=== PATIENT | male | born 1990 | race Caucasian/White ===

== ENCOUNTER 2020-11-22 21:22 | Emergency (ER) | payer BC, MEDICAID ==
[2020-11-22] MEDS ORDERED: Sodium Chloride 0.9% 2.5 ML Syringe FLUSH PRN (22:07)
[2020-11-22] MEDS ORDERED: Sodium Chloride 0.9% 10 ML Syringe FLUSH PRN (22:07)
[2020-11-22] MEDS ORDERED: LORazepam 1 MG Tab PO ONE (22:15)
--- NOTE | 2020-11-22 22:19 | EDM.PDOC ---
ED HPI GENERAL MEDICAL PROBLEM - General Chief Complaint: General Stated Complaint: DIARRHEA, ABDOMINAL PAIN, HEART PALPITATIONS Time Seen by Provider: 11/22/20 21:54 - History of Present Illness INITIAL COMMENTS - FREE TEXT/NARRATIVE: Patient is an otherwise well 29-year-old male with no previous past medical history who is presenting with palpitations blood in stool shortness of breath. Patient states that he initially had an episode of palpitations shortness of breath and anxiety a month or 2 ago after a night of heavy drinking and drinking a large cup of coffee. He states that he is relatively caffeine sensitive and normally just drinks green tea each day. He had an episode of palpitations lightheadedness near syncope and shortness of breath. These resolved without intervention. Patient had a similar episode a little over 2 weeks ago again in the setting of caffeine use. Patient was at the gym 3 days ago he was doing a chest workout and developed anterior chest pain as well as a sensation of shortness of breath and dizziness. He states that since that time his shortness of breath seems to have persisted. He also reports significant anxiety. No syncope or near syncope no active palpitations no active chest pain. Patient is a non-smoker. Patient also is concerned about some faint red lines on his nose and a sensation that he might be flushed or that he might have increased redness of his skin. He reports that on and off for the last month or so he has had small-volume bright red blood per rectum. Sometimes coating the stool sometimes mixed in with the stool. He denies any pain with defecation. He denies any abdominal pain. Patient has a history of allergies and reports significant nasal congestion as well. - Related Data Allergies Allergy/AdvReac Type Severity Reaction Status Date / Time No Known Allergies Allergy Verified 11/22/20 21:54 Home Meds: Home Meds . [No Known Home Meds] 11/22/20 [History] Past Medical History HEENT History: Reports: None Cardiovascular History: Reports: None Respiratory History: Reports: Asthma Gastrointestinal History: Reports: None Genitourinary History: Reports: None Musculoskeletal History: Reports: None Neurological History: Reports: None Psychiatric History: Reports: Anxiety Endocrine/Metabolic History: Reports: None Insulin Pump Model and Insulation Mechanic: None Hematologic History: Reports: None Immunologic History: Reports: None Oncologic (Cancer) History: Reports: None Dermatologic History: Reports: None - Infectious Disease History Infectious Disease History: Reports: None - Past Surgical History Head Surgeries/Procedures: Reports: None Social & Family History - Tobacco Use Tobacco Use Status *Q: Former Tobacco User Used Tobacco, but Quit: Yes Month/Year Tobacco Last Used: few years - Caffeine Use Caffeine Use: Reports: None - Recreational Drug Use Recreational Drug Use: No ED ROS GENERAL - Review of Systems Review Of Systems: See Below Free Text/Narrative/Comment: General: No fever. Skin: Per HPI Eyes: No vision problems. ENT: No sore throat. Neck: No neck stiffness. Respiratory: Per HPI Cardiac: Per HPI Gastrointestinal: Per HPI Musculoskeletal: No myalgias/arthralgias. Neurologic: No headache. ED EXAM, GENERAL - Physical Exam Exam: See Below Free Text/Narrative:: General Appearance: No acute distress, appears comfortable Skin: No rash HEENT: Normocephalic/atraumatic, sclera anicteric, mucous membranes moist Neck: Normal range of motion Chest and Lungs: Bilateral breath sounds, clear to auscultation Cardiovascular: Regular rate and rhythm, no murmur Abdomen: Soft, non-tender Back: Normal Musculoskeletal: No edema or tenderness Neurologic: Awake, alert, no obvious deficits, moving all extremities Psychiatric: Appropriate, cooperative #1 Interpretation EKG Date: 11/22/20 Time: 23:15 EKG Interpretation Comments: Normal sinus rhythm with a rate of 72 normal intervals and axis no acute ischemia normal EKG Course - Vital Signs Last Recorded V/S: Last Vital Signs Temp 98.0 F 11/22/20 23:19 Pulse 82 11/22/20 23:19 Resp 20 11/22/20 23:19 BP 138/72 11/22/20 23:19 Pulse Ox 99 11/22/20 23:19 - Orders/Labs/Meds Orders: Active Orders 24 hr Category Date Time Status EKG 12 Lead [EKG Documentation Completion] [RC] STAT Care 11/22/20 23:02 Active Sodium Chloride 0.9% [Saline Flush] Med 11/22/20 22:07 Active 10 ml FLUSH ASDIRECTED PRN Sodium Chloride 0.9% [Saline Flush] Med 11/22/20 22:07 Active 2.5 ml FLUSH ASDIRECTED PRN Saline Lock Insert [OM.PC] Stat Oth 11/22/20 22:07 Ordered Medication Orders Sodium Chloride (Sodium Chloride 0.9% 10 Ml Syringe) 10 ml FLUSH ASDIRECTED PRN PRN Reason: Keep Vein Open Last Admin: 11/22/20 22:29 Dose: 10 ml Documented by: SABIHA Sodium Chloride (Sodium Chloride 0.9% 2.5 Ml Syringe) 2.5 ml FLUSH ASDIRECTED PRN PRN Reason: Keep Vein Open Last Admin: 11/22/20 22:29 Dose: 2.5 ml Documented by: SABIHA Labs: Laboratory Tests 11/22/20 11/22/20 Range/Units 22:16 22:16 WBC 9.35 (4.0-11.0) K/uL RBC 5.48 (4.50-5.90) M/uL Hgb 16.6 (13.0-17.0) g/dL Hct 48.7 (38.0-50.0) % MCV 88.9 (80.0-98.0) fL MCH 30.3 (27.0-32.0) pg MCHC 34.1 (31.0-37.0) g/dL RDW Std Deviation 44.3 (28.0-62.0) fl RDW Coeff of Kaycee 14 (11.0-15.0) % Plt Count 323 (150-400) K/uL MPV 9.90 (7.40-12.00) fL Neut % (Auto) 65.5 (48.0-80.0) % Lymph % (Auto) 26.2 (16.0-40.0) % [place] % (Auto) 7.4 (0.0-15.0) % Eos % (Auto) 0.5 (0.0-7.0) % Baso % (Auto) 0.4 (0.0-1.5) % Neut # (Auto) 6.1 H (1.4-5.7) K/uL Lymph # (Auto) 2.5 H (0.6-2.4) K/uL [place] # (Auto) 0.7 (0.0-0.8) K/uL Eos # (Auto) 0.1 (0.0-0.7) K/uL Baso # (Auto) 0.0 (0.0-0.1) K/uL Nucleated RBC % 0.0 /100WBC Nucleated RBCs # 0 K/uL Sodium 137 (136-148) mmol/L Potassium 4.2 (3.5-5.1) mmol/L Chloride 101 (98-107) mmol/L Carbon Dioxide 25.4 (21.0-32.0) mmol/L BUN 12 (7.0-18.0) mg/dL Creatinine 0.9 (0.8-1.3) mg/dL Est Cr Clr Drug Dosing 126.17 mL/min Estimated GFR (MDRD) > 60.0 ml/min Glucose 98 (74-106) mg/dL Calcium 9.3 (8.5-10.1) mg/dL Magnesium 2.0 (1.8-2.4) mg/dL Total Bilirubin 0.6 (0.2-1.0) mg/dL AST 10 L (15-37) IU/L ALT 24 (14-63) IU/L Alkaline Phosphatase 88 (46-116) U/L Troponin I < 0.050 (0.000-0.056) ng/mL Total Protein 7.8 (6.4-8.2) g/dL Albumin 4.2 (3.4-5.0) g/dL Globulin 3.6 (2.6-4.0) g/dL Albumin/Globulin Ratio 1.2 (0.9-1.6) TSH 3rd Generation 2.16 (0.36-3.74) uIU/mL Meds: Medications Generic Name Dose Route Start Last Admin Trade Name Freq PRN Reason Stop Dose Admin Sodium Chloride 10 ml 11/22/20 22:07 11/22/20 22:29 Sodium Chloride 0.9% 10 Ml Syringe FLUSH 10 ml ASDIRECTED PRN Administration Keep Vein Open Sodium Chloride 2.5 ml 11/22/20 22:07 11/22/20 22:29 Sodium Chloride 0.9% 2.5 Ml Syringe FLUSH 2.5 ml ASDIRECTED PRN Administration Keep Vein Open Discontinued Medications Generic Name Dose Route Start Last Admin Trade Name Freq PRN Reason Stop Dose Admin Lorazepam 1 mg 11/22/20 22:15 11/22/20 22:29 Lorazepam 1 Mg Tab PO 11/22/20 22:16 1 mg ONETIME ONE Administration Lorazepam Confirm 11/22/20 22:32 11/22/20 22:33 Lorazepam 1 Mg Tab Administered 11/22/20 22:33 Not Given Dose 1 mg .ROUTE .STK-MED ONE Departure - Departure Time of Disposition: 23:57 Disposition: Home, Self-Care 01 Condition: Good Clinical Impression: Palpitations, Anxiety - Discharge Information *PRESCRIPTION DRUG MONITORING PROGRAM REVIEWED*: Not Applicable *COPY OF PRESCRIPTION DRUG MONITORING REPORT IN PATIENT JONATHAN: Not Applicable Instructions: Palpitations, Managing Anxiety, Adult Forms: ED Department Discharge Additional Instructions: Your EKG today was normal and showed normal heart conduction. Your blood work showed normal blood counts with a good hemoglobin normal kidney function normal thyroid function and normal electrolytes. Your chest x-ray was normal and showed no pneumonia or other problems in your lungs. Because your symptoms improved with the Ativan and they do seem to be somewhat situational I think anxiety is playing a strong exacerbating role in your symptoms. With the nasal congestion allergies may be playing a role as well. I encourage you to follow- up with one of the primary care clinics listed below. The blood in your stool is most likely related to hemorrhoids. However, if the blood in your stool worsens you develop any other symptoms that concern you please call your doctor or return to the ER. [facility] - Primary Care [address] [place] [address] [place] [address] The following information is given to patients seen in the emergency department who are being discharged to home. This information is to outline your options for follow-up care. We provide all patients seen in our emergency department with a follow-up referral. The need for follow-up, as well as the timing and circumstances, are variable depending upon the specifics of your emergency department visit. If you don't have a primary care physician on staff, we will provide you with a referral. We always advise you to contact your personal physician following an emergency department visit to inform them of the circumstance of the visit and for follow-up with them and/or the need for any referrals to a consulting specialist. The emergency department will also refer you to a specialist when appropriate. This referral assures that you have the opportunity for follow-up care with a specialist. All of these measure are taken in an effort to provide you with optimal care, which includes your follow-up. Under all circumstances we always encourage you to contact your private physician who remains a resource for coordinating your care. When calling for follow-up care, please make the office aware that this follow-up is from your recent emergency room visit. If for any reason you are refused follow-up, please contact the [facility] Emergency Department at and asked to speak to the emergency department charge nurse. Sepsis Event Note (ED) - Evaluation Sepsis Screening Result: No Definite Risk - Focused Exam Vital Signs: Vital Signs Temp Pulse Resp BP Pulse Ox 11/22/20 23:19 98.0 F 82 20 138/72 99 11/22/20 21:45 97.3 F 85 18 123/84 97 - My Orders Last 24 Hours: My Active Orders 11/22/20 22:07 Sodium Chloride 0.9% [Saline Flush] 10 ml FLUSH ASDIRECTED PRN Sodium Chloride 0.9% [Saline Flush] 2.5 ml FLUSH ASDIRECTED PRN Saline Lock Insert [OM.PC] Stat 11/22/20 23:02 EKG 12 Lead [EKG Documentation Completion] [RC] STAT - Assessment/Plan Last 24 Hours: My Active Orders 11/22/20 22:07 Sodium Chloride 0.9% [Saline Flush] 10 ml FLUSH ASDIRECTED PRN Sodium Chloride 0.9% [Saline Flush] 2.5 ml FLUSH ASDIRECTED PRN Saline Lock Insert [OM.PC] Stat 11/22/20 23:02 EKG 12 Lead [EKG Documentation Completion] [RC] STAT Assessment:: Patient is an otherwise well well-appearing 29-year-old male presenting with symptoms as noted above. Then a combination of allergies and anxiety and caffeine side effects would explain the majority of his symptoms. The bright red blood likely represents hemorrhoids diverticular bleeding considered I think it is unlikely given duration of symptoms without any tachycardia or other findings of significant blood loss. That said labs are pending. Patient is PERC negative. ACS felt very unlikely but EKG troponin pending thyroid dysfunction considered and TSH pending. Patient has no wheezing at this time I do not think he would benefit from albuterol and DuoNeb. Electrolyte abnormality considered as well and relevant labs pending. If evaluation here is unremarkable and patient remains stable he will likely safe for PCP follow-up. 2357: Patient symptoms improved with Ativan patient feels relatively well at this time. Patient symptoms do seem to wax and wane with stress and anxiety I think this is playing a strong role in his presentation. His evaluation here is normal given that no indication for further evaluation or admission at this time. Patient follow-up with primary care.
[2020-11-22] MEDS ORDERED: LORazepam 1 MG Tab ONE (22:32)
[2020-11-22 22:48] LABS: BLOOD UREA NITROGEN,BUN 12 mg/dL (7.0-18.0); CARBON DIOXIDE,CO2 25.4 mmol/L (21.0-32.0); CHLORIDE,CL 101 mmol/L (98-107); GLUCOSE RANDOM 98 mg/dL (74-106); POTASSIUM,K 4.2 mmol/L (3.5-5.1); SODIUM,NA 137 mmol/L (136-148)
--- NOTE | 2020-11-22 23:48 | CR ---
For Patients: As a result of the Cures Act, medical imaging exams and procedure reports are released immediately into your electronic medical record. You may view this report before your referring provider. If you have questions, please contact your health care provider. INDICATION: Shortness of breath TECHNIQUE: PA and lateral views of the chest COMPARISON: None FINDINGS: The lungs are clear. There is no pleural effusion or pneumothorax. The cardiomediastinal silhouette is normal. The osseous structures are unremarkable. IMPRESSION: No acute intrathoracic process. Dictated by Tonja Euceda MD @ 11/22/2020 11:47:[address] Tonja Euceda @ Nov 22 2020 11:47PM
== END 2020-11-23 00:42 | disposition home or self-care (01) ==
LOC: MW.ED 21:22
DX: F41.9 Anxiety disorder, unspecified (principal); J45.909 Unspecified asthma, uncomplicated; Z87.891 Personal history of nicotine dependence
CPT/HCPCS: 36415; 71046; 80053; 83735; 84443; 84484; 85025; 93005; 99285; A9270

== ENCOUNTER 2021-04-19 08:23 | Emergency (ER) | payer MEDICAID ==
[2021-04-19] MEDS ORDERED: Alum Hydrox/Mag Hydrox/Simeth 15 ML, Lidocaine 2% 5 ML PO ONE ×4 (08:51→09:30)
--- NOTE | 2021-04-19 08:54 | EDM.PDOC ---
ED HPI GENERAL MEDICAL PROBLEM - General Chief Complaint: Chest Pain Stated Complaint: CHEST PAIN/SOB Time Seen by Provider: 04/19/21 10:00 Source of Information: Reports: Patient - History of Present Illness INITIAL COMMENTS - FREE TEXT/NARRATIVE: 30-year-old male presents complaining of chest pain. Patient states he had this before after drinking and he did drink a couple of days ago and he is feeling this discomfort. The left-sided chest pressure. No current exacerbating relieving factors. No fevers or productive sputum. Patient volunteers he has a history of anxiety. Moderate symptoms. History of asthma chest Pain Score (Numeric/FACES): 2 - Related Data Allergies Allergy/AdvReac Type Severity Reaction Status Date / Time No Known Allergies Allergy Verified 04/19/21 08:36 Home Meds: Home Meds . [No Known Home Meds] 11/22/20 [History] Albuterol Sulfate [Albuterol Sulfate Hfa] 2 puff INH Q4H PRN 04/19/21 [History] Past Medical History HEENT History: Reports: None Cardiovascular History: Reports: None Respiratory History: Reports: Asthma Gastrointestinal History: Reports: Other (See Below) Other Gastrointestinal History: hx of stomach ulcer Genitourinary History: Reports: None Musculoskeletal History: Reports: None Neurological History: Reports: None Psychiatric History: Reports: Anxiety Endocrine/Metabolic History: Reports: None Insulin Pump Model and Lab Intern: None Hematologic History: Reports: None Immunologic History: Reports: None Oncologic (Cancer) History: Reports: None Dermatologic History: Reports: None - Infectious Disease History Infectious Disease History: Reports: Chicken Pox - Past Surgical History Head Surgeries/Procedures: Reports: None GI Surgical History: Reports: None Social & Family History - Family History Family Medical History: No Pertinent Family History - Tobacco Use Tobacco Use Status *Q: Former Tobacco User Used Tobacco, but Quit: Yes Month/Year Tobacco Last Used: 2017 - Caffeine Use Caffeine Use: Reports: None - Recreational Drug Use Recreational Drug Use: Yes Drug Use in Last 12 Months: Yes Recreational Drug Type: Reports: Marijuana/Hashish Recreational Drug Use Frequency: Weekly ED ROS GENERAL - Review of Systems Review Of Systems: Comprehensive ROS is negative, except as noted in HPI. GI/Abdominal: Reports: Other (Longstanding intermittent bloody stools) ED EXAM, GENERAL - Physical Exam Exam: See Below Free Text/Narrative:: CONSTITUTIONAL: well appearing in no acute distress SKIN: dry, and intact without rash HENT: Normocephalic, atraumatic, NECK: normal range of motion PULMONARY: normal chest rise and fall, no respiratory distress or stridor. No rales or rhonchi or wheezing. Good air movement NEUROLOGIC: normal speech, moves all extremities, grossly non-focal MUSCULOSKELETAL: no gross deformities, atraumatic PSYCHIATRIC: normal mood and affect #1 Interpretation Time: 08:54 EKG Interpretation Comments: EKG: NSR, nonspecific ST/T changes, Rate -68 Course - Vital Signs Text/Narrative:: Differential diagnosis: GERD, gastritis, asthma exacerbation, anxiety, ACS, pericarditis, other Presents to the emergency department with chest discomfort. EKG nonspecific with negative EKG for any marked acute findings. Patient's chest x-ray does show evidence of chronic interstitial changes and hyperinflation. I relistened the patient lungs he has very good breath sounds bilaterally with good air exchange. I do not think he is having active reactive airway disease at this time. I am less impressed with the chronic interstitial findings that he did not hear any rales. No focal consolidation. Remainder the work-up is effectively unremarkable. Supportive treatment with return precautions and PCP follow-up. Last Recorded V/S: Last Vital Signs Temp 36.6 C 04/19/21 08:37 Pulse 73 04/19/21 08:37 Resp 16 04/19/21 08:37 BP 129/93 H 04/19/21 08:37 Pulse Ox 96 04/19/21 08:37 - Orders/Labs/Meds Labs: Laboratory Tests 04/19/21 04/19/21 Range/Units 09:00 09:00 WBC 5.44 (4.0-11.0) K/uL RBC 5.37 (4.50-5.90) M/uL Hgb 16.1 (13.0-17.0) g/dL Hct 46.8 (38.0-50.0) % MCV 87.2 (80.0-98.0) fL MCH 30.0 (27.0-32.0) pg MCHC 34.4 (31.0-37.0) g/dL RDW Std Deviation 44.6 (28.0-62.0) fl RDW Coeff of Kaycee 14 (11.0-15.0) % Plt Count 237 (150-400) K/uL MPV 9.40 (7.40-12.00) fL Neut % (Auto) 57.5 (48.0-80.0) % Lymph % (Auto) 32.4 (16.0-40.0) % [place] % (Auto) 7.7 (0.0-15.0) % Eos % (Auto) 2.0 (0.0-7.0) % Baso % (Auto) 0.4 (0.0-1.5) % Neut # (Auto) 3.1 (1.4-5.7) K/uL Lymph # (Auto) 1.8 (0.6-2.4) K/uL [place] # (Auto) 0.4 (0.0-0.8) K/uL Eos # (Auto) 0.1 (0.0-0.7) K/uL Baso # (Auto) 0.0 (0.0-0.1) K/uL Nucleated RBC % 0.0 /100WBC Nucleated RBCs # 0 K/uL Sodium 139 (136-148) mmol/L Potassium 4.2 (3.5-5.1) mmol/L Chloride 102 (98-107) mmol/L Carbon Dioxide 24.1 (21.0-32.0) mmol/L BUN 11 (7.0-18.0) mg/dL Creatinine 0.8 (0.8-1.3) mg/dL Est Cr Clr Drug Dosing 140.68 mL/min Estimated GFR (MDRD) > 60.0 ml/min Glucose 105 (74-106) mg/dL Calcium 8.7 (8.5-10.1) mg/dL Total Bilirubin 0.5 (0.2-1.0) mg/dL AST 10 L (15-37) IU/L ALT 23 (14-63) IU/L Alkaline Phosphatase 77 (46-116) U/L Troponin I < 0.050 (0.000-0.056) ng/mL Total Protein 7.3 (6.4-8.2) g/dL Albumin 3.7 (3.4-5.0) g/dL Globulin 3.6 (2.6-4.0) g/dL Albumin/Globulin Ratio 1.0 (0.9-1.6) Meds: Medications Discontinued Medications Generic Name Dose Route Start Last Admin Trade Name Estefani PRN Reason Stop Dose Admin Al Hydroxide/Mg Hydroxide 30 ml 04/19/21 09:46 04/19/21 09:59 Aluminum Hydroxide/Magnesium Hydroxide/Simethicone Susp 30 Ml Cup PO 04/19/21 09:47 Not Given ONETIME ONE Al Hydroxide/Mg Hydroxide 15 0 ml 04/19/21 09:30 04/19/21 09:59 ml/ Lidocaine HCl 5 ml PO 04/19/21 09:31 1 each ONETIME ONE Administration Lidocaine HCl 20 ml 04/19/21 09:46 04/19/21 09:59 Lidocaine 2% Viscous Solution 100 Ml Bottle PO 04/19/21 09:47 Not Given ONETIME ONE Departure - Departure Time of Disposition: 11:18 Disposition: Home, Self-Care 01 Condition: Good Clinical Impression: Chest pain - Discharge Information Instructions: Nonspecific Chest Pain, Adult, [id number] Referrals: PCP,None [Primary Care Provider] - Forms: ED Department Discharge Additional Instructions: Return for increasing pain, shortness of breath, change or worsening condition. Follow-up with primary care doctor this week or early next week. The following information is given to patients seen in the emergency department who are being discharged to home. This information is to outline your options for follow-up care. We provide all patients seen in our emergency department with a follow-up referral. The need for follow-up, as well as the timing and circumstances, are variable depending upon the specifics of your emergency department visit. If you don't have a primary care physician on staff, we will provide you with a referral. We always advise you to contact your personal physician following an emergency department visit to inform them of the circumstance of the visit and for follow-up with them and/or the need for any referrals to a consulting specialist. The emergency department will also refer you to a specialist when appropriate. This referral assures that you have the opportunity for follow-up care with a specialist. All of these measure are taken in an effort to provide you with optimal care, which includes your follow-up. Primary care clinics in the area: [facility] - Primary Care [address] [place] [address] [facility] [address] [place] [id number] Under all circumstances we always encourage you to contact your private physician who remains a resource for coordinating your care. When calling for follow-up care, please make the office aware that this follow-up is from your recent emergency room visit. If for any reason you are refused follow-up, please contact the [facility] Emergency Department at and asked to speak to the emergency department charge nurse. Sepsis Event Note (ED) - Evaluation Sepsis Screening Result: No Definite Risk - Focused Exam Vital Signs: Vital Signs Temp Pulse Resp BP Pulse Ox 04/19/21 08:37 36.6 C 73 16 129/93 H 96
--- NOTE | 2021-04-19 09:19 | CR ---
Indication: Chest Pain Comparison: Two-view chest November 22, 2020 Technique: Single AP view chest Findings: There is hyperinflation and chronic interstitial change. There is no focal consolidation, effusion, or pneumothorax. The cardiac silhouette is within normal limits. The bony thorax is grossly intact. Impression: There is hyperinflation and chronic interstitial change without evidence of dense consolidation. Dictated by Gildardo Boalnos MD @ 04/19/2021 9:18:09 AM (Electronically Signed)
[2021-04-19 09:39] LABS: BLOOD UREA NITROGEN,BUN 11 mg/dL (7.0-18.0); CARBON DIOXIDE,CO2 24.1 mmol/L (21.0-32.0); CHLORIDE,CL 102 mmol/L (98-107); GLUCOSE RANDOM 105 mg/dL (74-106); POTASSIUM,K 4.2 mmol/L (3.5-5.1); SODIUM,NA 139 mmol/L (136-148)
[2021-04-19] MEDS ORDERED: Lidocaine 2% Viscous Solution 100 ML Bottle PO ONE (09:46)
[2021-04-19] MEDS ORDERED: Aluminum Hydroxide/Magnesium Hydroxide/Simethicone Susp 30 ML Cup PO ONE (09:46)
== END 2021-04-19 11:47 | disposition home or self-care (01) ==
LOC: MW.ED 08:23
DX: R07.89 Other chest pain (principal); Z87.891 Personal history of nicotine dependence
CPT/HCPCS: 36415; 71045; 80053; 84484; 85025; 99285; A9270

== ENCOUNTER 2022-07-22 09:49 | Emergency (ER) | payer BC, MEDICAID ==
[2022-07-22] MEDS ORDERED: Famotidine 20 MG/2 ML SDV IVPUSH ONE (10:13)
[2022-07-22] MEDS ORDERED: Sodium Chloride 0.9% 1,000 ML IV ONE (10:13)
[2022-07-22] MEDS ORDERED: Alum Hydro/Mag Hydro/Simeth XS 15 ML, Metoclopramide 5 MG, Lidocaine 2% 5 ML PO ONE ×3 (10:13)
[2022-07-22 11:02] LABS: CARBON DIOXIDE,CO2 24.6 mmol/L (21.0-32.0); POTASSIUM,K 4.2 mmol/L (3.5-5.1)
== END 2022-07-22 11:26 | disposition home or self-care (01) ==
LOC: MW.ED 09:49
DX: K21.9 Gastro-esophageal reflux disease without esophagitis (principal); J45.909 Unspecified asthma, uncomplicated; F17.210 Nicotine dependence, cigarettes, uncomplicated; Z79.899 Other long term (current) drug therapy
CPT/HCPCS: 36415; 80053; 83690; 85025; 96361; 96374; 99284; A9270; J3490; J7030; 99283

== ENCOUNTER 2023-05-05 10:49 | Emergency (ER) | payer BC ==
[2023-05-05] MEDS ORDERED: Sodium Chloride 0.9% 1,000 ML IV ONE (11:05)
[2023-05-05] MEDS ORDERED: Albuterol/Ipratropium 3.0-0.5 MG/3 ML Neb Soln NEB ONE (11:05)
[2023-05-05] MEDS ORDERED: Ondansetron 4 MG/2 ML SDV IVPUSH ONE (11:12)
[2023-05-05 11:38] LABS: BASOPHILS ABSOLUTE AUTO 0.06 K/uL (0.00-0.20); BASOPHILS PERCENT AUTO 0.8 % (0.0-1.0); EOSINOPHILS ABSOLUTE AUTO 0.16 K/uL (0.00-0.45); HEMOGLOBIN 16.9 g/dL (14.0-18.0); IMMATURE GRAN ABSOLUTE AUTO 0.04 K/uL (0.00-0.05); IMMATURE GRAN PERCENT AUTO 0.5 % (0.0-0.4); LYMPHOCYTES ABSOLUTE AUTO 2.07 K/uL (1.00-4.80); LYMPHOCYTES PERCENT AUTO 26.5 % (24.0-44.0); MEAN CORPUSCULAR HEMOGLOBIN 28.6 pg (28.0-32.0); MEAN CORPUSCULAR HGB CONC 34.5 g/dL (32.0-36.0); MEAN CORPUSCULAR VOLUME 83.1 fL (83.0-99.0); MEAN PLATELET VOLUME 8.7 fL (9.4-12.4); MONOCYTES ABSOLUTE AUTO 0.47 K/uL (0.00-0.80); NEUTROPHILS ABSOLUTE AUTO 5.01 K/uL (1.80-7.70); NEUTROPHILS PERCENT AUTO 64.2 % (41.0-71.0); PLATELET COUNT,PLT 363 K/uL (150-400); WHITE BLOOD CELL COUNT,WBC 7.81 K/uL (3.9-11.3)
[2023-05-05 12:24] LABS: LACTIC ACID 1.6 mmol/L (0.4-2.0)
[2023-05-05 12:24] LABS: A/G RATIO 1.1 (0.9-1.6); ALANINE AMINOTRANSFERASE,ALT 26 IU/L (14-63); ALBUMIN 4.1 g/dL (3.4-5.0); ALKALINE PHOSPHATASE 105 U/L (46-116); ASPARTATE AMNIOTRANSFERASE,AST 15 IU/L (15-37); BILIRUBIN TOTAL 0.3 mg/dL (0.2-1.0); BLOOD UREA NITROGEN,BUN 10 mg/dL (7.0-18.0); CALCIUM 9.4 mg/dL (8.5-10.1); CARBON DIOXIDE,CO2 25.4 mmol/L (21.0-32.0); CHLORIDE,CL 103 mmol/L (98-107); CREATININE 0.9 mg/dL (0.8-1.3); EST CRCL DRUG DOSING (CG) 122.79 mL/min; GLUCOSE RANDOM 106 mg/dL (74-106); POTASSIUM,K 4.2 mmol/L (3.5-5.1); PROTEIN TOTAL,TP 7.9 g/dL (6.4-8.2); SODIUM,NA 140 mmol/L (136-148)
[2023-05-05 12:26] LABS: ESTIMATED GFR 117 mL/min (>60)
== END 2023-05-05 12:56 | disposition home or self-care (01) ==
LOC: MW.ED 10:49
DX: T65.91XA Toxic effect of unspecified substance, accidental (unintentional), initial encounter (principal); J68.0 Bronchitis and pneumonitis due to chemicals, gases, fumes and vapors
CPT/HCPCS: 36415; 71046; 80053; 83605; 83735; 84484; 85025; 93005; 96361; 96374; 99284; J2405; J7030; 93010; J7620-GY

== ENCOUNTER 2024-11-08 21:19 | Emergency (ER) | payer BC, OTHER ==
[2024-11-08] MEDS: Ondansetron 4 MG/2 ML SDV IVPUSH ONE (21:49)
[2024-11-08] MEDS: Sodium Chloride 0.9% 1,000 ML IV ONE ×2 (21:49→23:04)
[2024-11-08 22:11] LABS: BASOPHILS ABSOLUTE AUTO 0.07 K/uL (0.00-0.20); BASOPHILS PERCENT AUTO 0.8 % (0.0-1.0); EOSINOPHILS ABSOLUTE AUTO 0.05 K/uL (0.00-0.45); EOSINOPHILS PERCENT AUTO 0.5 % (0.0-6.0); HEMATOCRIT 48.2 % (42.0-52.0); HEMOGLOBIN 16.3 g/dL (14.0-18.0); IMMATURE GRAN ABSOLUTE AUTO 0.02 K/uL (0.00-0.05); IMMATURE GRAN PERCENT AUTO 0.2 % (0.0-0.4); LYMPHOCYTES ABSOLUTE AUTO 2.32 K/uL (1.00-4.80); LYMPHOCYTES PERCENT AUTO 24.9 % (24.0-44.0); MEAN CORPUSCULAR HEMOGLOBIN 26.5 pg (28.0-32.0); MEAN CORPUSCULAR HGB CONC 33.8 g/dL (32.0-36.0); MEAN CORPUSCULAR VOLUME 78.4 fL (83.0-99.0); MONOCYTES PERCENT AUTO 5.4 % (0.0-8.0); NEUTROPHILS ABSOLUTE AUTO 6.37 K/uL (1.80-7.70); NEUTROPHILS PERCENT AUTO 68.2 % (41.0-71.0); PLATELET COUNT,PLT 352 K/uL (150-400); RED BLOOD CELL COUNT 6.15 M/uL (4.52-5.90); WHITE BLOOD CELL COUNT,WBC 9.33 K/uL (3.9-11.3)
[2024-11-08 22:34] LABS: A/G RATIO 1.2 (0.9-1.6); BILIRUBIN TOTAL 0.3 mg/dL (0.2-1.0); CARBON DIOXIDE,CO2 23.2 mmol/L (21.0-32.0); CREATININE 1.1 mg/dL (0.8-1.3); EST CRCL DRUG DOSING (CG) 99.55 mL/min; POTASSIUM,K 3.1 mmol/L (3.5-5.1); PROTEIN TOTAL,TP 7.4 g/dL (6.4-8.2)
[2024-11-08] MEDS: Alum Hydrox/Mag Hydrox/Simeth 15 ML, Lidocaine 2% 5 ML PO ONE (23:03)
[2024-11-08] MEDS: Metoclopramide 10 MG/2 ML SDV IVPUSH ONE (23:04)
== END 2024-11-09 00:13 | disposition home or self-care (01) ==
LOC: MW.ED 21:19
DX: F10.129 Alcohol abuse with intoxication, unspecified (principal); R11.2 Nausea with vomiting, unspecified; J45.909 Unspecified asthma, uncomplicated; F17.200 Nicotine dependence, unspecified, uncomplicated; Z79.899 Other long term (current) drug therapy; Y90.9 Presence of alcohol in blood, level not specified
CPT/HCPCS: 36415; 80053; 83690; 85025; 96361; 96374; 96375; 99284; A9270; J2405; J2765; J7030